=== PATIENT | male | born 1975 | race Caucasian/White ===

== ENCOUNTER 2024-08-28 05:48 | Emergency (ER) | payer BC, SELFPAY ==
--- NOTE | 2024-08-28 | XR_ITS ---
Examination: MRI pelvis with intravenous contrast. MRI pelvis without intravenous contrast. Date and time of exam: August 28, 2024 1129 hrs. Indications: Osteolytic lesion body of the sacrum at the S2 level on CT lumbar spine August 28, 2024 Technique: Multiple axial, sagittal and coronal sections of the pelvis obtained. Transverse images, TR 6020, TE 107. T1 weighted transverse images, TR 582, TE 9.5. T2-weighted sagittal images, TR 4000, TE 105. T2-weighted sagittal images, TR 4000, TE 5. Coronal images, TR 4210, TE 107. Axial and coronal images are obtained post 20 cc intravenous injection, gadolinium. 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
--- NOTE | 2024-08-28 | XR_ITS ---
Examination: MRI lumbar spine, without intravenous contrast. MRI lumbar spine , with intravenous contrast. Exam date and time: August 28, 2024 11:29 AM Technique: Multiple axial, sagittal and coronal images of the lumbar spine have been obtained with the Siemens high-resolution 1.5 Radha MRI scanner. Images obtained included T2 weighted fat suppressed sagittal sections, TR 3500, TE 46, T2 weighted coronal fat suppressed images, TR 3050, TE 84, T2-weighted transverse fat suppressed images, TR 30-60, TE 63, proton density transverse images, TR 4720, TE 46, and T1 weighted coronal images, TR 560, TE 13. Axial, sagittal and coronal images are obtained post intravenous injection 20 cc gadolinium. Findings: Cystic lesion at the S2 level which does not show abnormal enhancement on the postcontrast images, most consistent with Tarlov cyst, measuring 40 x 38 mm Adequate alignment lumbar vertebral bodies No abnormal osseous epidural conus medullaris or cauda equina enhancement Impression: Findings most consistent with benign Tarlov cyst S2 level, recommend 3 month follow-up plain films lumbar spine
[2024-08-28 05:50] VITALS: BMI 29.7
[2024-08-28 05:56] VITALS: BP 134/85; PULSE 61; RESP 19; TEMP 36.4; O2SAT 98
--- NOTE | 2024-08-28 06:22 | XR_ITS ---
Examination: CT lumbar spine, without contrast. 2-D sagittal reconstructions. 2-D coronal reconstructions. 3-D reconstructions. Date and time of exam:August 28, 2024 0655 hrs. Indications: Lower back pain onset one week ago CTDI: vol (mGy):21.8 DLP: (mGycm):646 Technique: Multiple 1.25 mm axial sections of the lumbar spine without intravenous contrast have been obtained. 2-D sagittal and coronal reconstructions have been obtained. 3-D reconstructions have been obtained. Low dose protocols were performed. One or more of the following dose reduction techniques were used; automated exposure control, adjustment of the mA and/or KV according to patient size, use of iterative reconstruction technique. Findings: Mild osteopenia Satisfactory alignment lumbar vertebral bodies No lumbar fracture Mild lumbar spondylosis Mild disc narrowing L5-S1 Lumbar pedicles, laminae, transverse and posterior spinous processes intact Large radiolucent area in the S2 vertebral body, sagittal image 41, axial image 175, differential would include extra medullary intradural tumor, on the axial images this osteolytic defect measures 4.2 x 3.6 cm No significant focal soft tissue disc protrusion Impression: Large osteolytic defect in the body and right sacral wing S2, differential would include extra medullary intradural tumor Recommend MRI lumbar spine and pelvis pre and post contrast follow-up
[2024-08-28] MEDS: KETOROLAC INJ 30 MG/ML VIAL IM (07:04)
[2024-08-28] MEDS: DIAZEPAM 5 MG TABLET 10 MG PO (07:05)
[2024-08-28] MEDS: HYDROcodone/APAP 5/325 TABLET 1 TAB PO (07:05)
[2024-08-28 07:49] VITALS: BP 127/77; PULSE 71; RESP 20; TEMP 36.7; O2SAT 97
--- NOTE | 2024-08-28 08:44 | XR_ITS ---
Examination: CT abdomen with intravenous contrast CT pelvis with intravenous contrast 2-D coronal reconstructions 2-D sagittal reconstructions Date and time of exam:August 28, 2024 0932 hrs. Indications: Lifting injury cyst week with lower back pain, osteolytic lesion in the body and right sacral wing S2 on CT lumbar spine study this morning. CTDI: vol (mGy) 10.2 DLP: (mGycm) 601 Technique: Multiple axial sections of the abdomen and pelvis have been obtained. 64 slice high-resolution scanner used. 3 mm axial sections have been obtained, post intravenous injection 60 cc Isovue-370 2-D sagittal, coronal reconstructions obtained. Low dose protocols were performed. One or more of the following dose reduction techniques were used; automated exposure control, adjustment of the mA and/or KV according to patient size, use of iterative reconstruction technique. Findings: 6 mm low-density posterior right lobe liver lesion image 52 indeterminate No gallstones Spleen not enlarged No pancreatic or adrenal mass Moderate bilateral renal parenchymal scar formation Aorta normal size Normal appendix No bowel obstruction No diverticulitis No prostatomegaly Urinary bladder intact Again noted osteolytic lesion S2, 4 x 3.8 cm Iliac bones hips intact Impression: 6 mm indeterminate right lobe liver lesion, likely benign cysts Moderate bilateral renal parenchymal scar formation Normal appendix No bowel obstruction or diverticulitis Again noted S2 osteolytic lesion 4 x 3.8 cm, recommend MRI lumbar spine follow-up pre and post intravenous contrast
[2024-08-28 09:49] LABS: Basophils % (Auto) 0 % (0-2.5); Eosinophils # (Auto) 0.1 Thou/mm3 (0.0-0.5); Eosinophils % (Auto) 2 % (0-10); Hematocrit 45.6 % (41.0-53.0); Hemoglobin 15.7 g/dL (13.5-16.0); Immature Granulocytes % (Auto) 0 % (0-0); Immature Granulocytes Auto 0.02 Thou/mm3 (0.00-0.00); Lymphocytes # (Auto) 1.8 Thou/mm3 (1.0-4.8); Lymphocytes % (Auto) 35 % (10-50); Mean Corpuscular HGB Conc 34.4 g/dl (31.0-37.0); Mean Corpuscular Hemoglobin 30.5 pg (25.0-35.0); Mean Corpuscular Volume 89 fL (80-100); Monocytes # (Auto) 0.4 Thou/mm3 (0.0-0.8); Monocytes % (Auto) 7 % (0-12); Neutrophils # (Auto) 2.9 Thou/mm3 (1.8-7.7); Neutrophils % (Auto) 55 % (37-80); Nucleated Red Blood Cell % 0 /100 WBC (0); Platelet Count 178 Thou/mm3 (140-440); RDW Standard Deviation 38.3 fL (35.1-43.9); Red Blood Count 5.15 Miln/mm3 (4.50-5.90); White Blood Count 5.3 Thou/mm3 (3.8-10.6)
[2024-08-28 09:54] LABS: Alanine Aminotransferase 28 U/L (10-49); Albumin, Serum 4.8 gm/dL (3.5-5.0); Albumin/Globulin Ratio 2.1 (1.2-2.2); Alkaline Phosphatase 41 U/L (46-116); Anion Gap 7 (7-16); Aspartate Amino Transferase 19 U/L (0-34); BUN/Creatinine Ratio 16 Ratio (12-20); Bilirubin,Total 1.1 mg/dL (0.3-1.2); Blood Urea Nitrogen 18 mg/dL (9-23); Calcium 9.6 mg/dL (8.3-10.6); Calcium (Corrected) 9.6 mg/dL (8.5-10.1); Carbon Dioxide 25.9 mMol/L (20.0-31.0); Chloride 106 mMol/L (98-107); Creatinine (Component) 1.1 mg/dL (0.6-1.3); Estimated Creatinine Clearance 103.1 mL/min (>60); Globulin 2.3 gm/dL (2.3-3.5); Glucose 103 mg/dL (74-106); Osmolality,Calculated 279 (275-295); Potassium 4.2 mMol/L (3.4-5.1); Sodium 139 mMol/L (136-145); Total Protein 7.1 gm/dL (5.7-8.2); eGFR > 60 See Note
[2024-08-28] MEDS: SODIUM CHLORIDE 0.9% 1000 ML 1,000 ML 125 ML IV (09:59)
[2024-08-28 10:49] VITALS: BP 124/83; PULSE 64; RESP 18; TEMP 37; O2SAT 97
[2024-08-28] MEDS: MORPHINE SULF INJ 10 MG/ML VIAL 4 MG IVP (11:02)
[2024-08-28] MEDS: ONDANSETRON INJ 2 MG/ML INJ 2 ML 4 MG IV (11:03)
[2024-08-28 14:00] VITALS: BP 133/76; PULSE 60; RESP 18; TEMP 36.7; O2SAT 97
[2024-08-28 14:42] LABS: Collection Type, Urine Clean Catch; Squamous Epithelial Cell,Urine 0 /hpf (0-5)
[2024-08-28 14:51] LABS: Bilirubin,Urine Negative (Negative); Blood,Urine Negative (Negative); Clarity,Urine Clear (Clear/Hazy); Color,Urine Lt-Yellow (Lt Yel-Yel); Culture Indicated,Urine Not Indicated; Glucose, Urine Negative (Negative); Ketones,Urine Negative (Negative); Leukocyte Esterase,Urine Negative (Negative); Nitrite,Urine Negative (Negative); Protein,Urine Negative (Neg - Trace); RBC,Urine 2 /hpf (0-3); Urobilinogen,Urine Negative mg/dL (0.0-1.0); WBC,Urine < 1 /hpf (0-5)
[2024-08-28 14:56] LABS: Amphetamine/Methamp Scrn,U Negative (Negative); Barbiturate Screen,Urine Negative (Negative); Benzodiazepines Screen,Urine Positive (Negative); Benzoylecgonine Screen, Ur Negative (Negative); Fentanyl Screen,Urine Negative (Negative); Opiate Screen,Urine Positive (Negative); THC Screen,Urine Negative (Negative)
[2024-08-28 15:59] VITALS: BP 133/82; PULSE 57; RESP 18; TEMP 36.7; O2SAT 96
--- NOTE | 2024-08-28 16:11 | EDNOTE_ITS ---
ED Back Injury Pain RME/HPI General Chief Complaint: Back Pain/Injury Stated Complaint: LOWER BACK PAIN Time Seen by Provider: 08/28/24 06:16 Arrival date/time: 08/28/24 05:48 RME / HPI RME / HPI Narrative: Patient presented to the emergency department, accompanied by his . Chief complaint is low back pain x 1 week after moving heavy boxes at house. The pain is 10/10. He has no fever. No chest pain. No abdominal pain. No problems urinating. Is painful when he walks but otherwise no bowel or urine incontinence Past medical history is coronary stenting and angioplasty taking Plavix. No diabetes. Related Data Home Medications ?Medication ?Instructions ?Recorded ?Confirmed amlodipine 5 mg-valsartan 320 mg 1 tab PO QDAY 02/04/20 08/21/23 tablet clopidogrel 75 mg tablet 75 mg PO QDAY 02/13/23 08/21/23 rosuvastatin 20 mg tablet 20 mg PO 1XD 08/21/23 08/21/23 Previous Rx's ?Medication ?Instructions ?Recorded cyclobenzaprine 5 mg tablet 5 mg PO TID PRN muscle spasm #14 08/21/23 tabs ibuprofen 600 mg tablet 600 mg PO Q6H PRN pain #30 tabs 08/21/23 acetaminophen 300 mg-codeine 30 mg 1 tab PO Q6H PRN pain #20 tabs 08/28/24 tablet acetaminophen 300 mg-codeine 30 mg 1 tab PO TID PRN pain #20 tabs 08/28/24 tablet cyclobenzaprine 10 mg tablet 10 mg PO TID PRN muscle spasm #30 08/28/24 tabs hydrocodone 5 mg-acetaminophen 325 1 tab PO Q6H PRN pain #14 tabs 08/28/24 mg tablet Allergies Allergy/AdvReac Type Severity Reaction Status Date / Time No Known Allergies Allergy Verified 02/13/23 15:18 Review of Systems Review of Systems Narrative Review of Systems: REVIEW OF SYSTEM: GEN:? negative except mentioned in HPI HEENT:? negative except mentioned in HPI NECK:? negative except mentioned in HPI PULM:? negative except mentioned in HPI CARD:? negative except mentioned in HPI GI:? negative except mentioned in HPI MUSCULO/SKET: negative except mentioned in HPI SKIN:? negative except mentioned in HPI NEURO:? negative except mentioned in HPI PSYCH:? negative except mentioned in HPI Past Medical History Past Medical History NEUROLOGIC: Negative Neurological Disorders CARDIAC: Positive Cardiac Arrhythmia, Coronary Artery Disease (Stent and 2 balloons placed in 2019.), Hypercholesterolemia, Edema (BLE) and Hypertension; Negative Cardiac Disorders or Congestive Heart Failure RESPIRATORY: Negative Respiratory Disorders, Chronic Obstructive Pulmonary Disease (COPD) or Asthma GASTROINTESTINAL: Negative Gastrointestinal Disorders GENITOURINARY: Negative Genitourinary Disorders or Renal Disease MUSCULOSKELETAL: Positive Musculoskeletal Disorders ENDOCRINE: Negative Endocrine Disorders, Diabetes Mellitus Type 1 or Diabetes Mellitus Type 2 HEMATOLOGIC: Negative Blood Disorders or Sickle Cell Disease OTHER HISTORY: Positive Chicken Pox; Negative Autoimmune Disease or Cancer Family History FAMILY HISTORY: Positive Family Cancer; Negative Family Psychiatric Problems, Family Respiratory Disorders, Family Cardiac Disorders (dad), Family Gastrointestinal Problems, Family Surgery or Family Anesthesia Reaction Surgical History SURGICAL: Negative Endocrine Surgery, Ear Surgery or Abdominal Surgery Social History SMOKING STATUS: Never smoker ED Exam Narrative Physical exam: Aaox4. No acute distress O2 saturation is normal Heent:? perra. Eomi. No icteric. Neck: full rom.? No mass.? No jvd.? No lymphadenopathy Lungs:? clear, full, equal Heart:? s1s2.? Rrr.? No murmur, gallop or rub. Abd: soft, nondistended, nontender, no mass, no rebound or guarding, no flank tender.? No incarcerated? hernia Ext:? full rom.? No deformity.? Normal csm. No deficit. Back examination: Showing some redness on the left flank. May be by the way to the patient laying on it. But is nontender. noticing it. Neuro:?? intact cn2 to 12.? No facial droop.? No slurred speech.? No focal deficit.? Moves all 4ext Skin:? no rash.? No cellulitis.? No lesion.? No laceration Psychiatrical: no suicidal.? No homicidal.? No delusion.? No hallucinating Course Quality Measures none Orders Category Date Time Status CT Screening NOW Care 08/28/24 08:44 Active MRI Screening NOW Care 08/28/24 08:31 Active Saline [Insert IV] NOW Care 08/28/24 08:[address] abdomen pelvis w con Stat Exams 08/28/24 08:[address] lumbar spine wo con Stat Exams 08/28/24 06:22 Completed MR lumbar spine wo/w con Stat Exams 08/28/24 Completed MR pelvis wo/w con Stat Exams 08/28/24 Completed CBC Stat Lab 08/28/24 09:24 Completed CMP [Comprehensive Metabolic Panel] Stat Lab 08/28/24 09:24 Completed Drug Screen,Urine Stat Lab 08/28/24 14:36 Completed UA, C/S IF [Urinalysis, C/S if Indicated] Stat Lab 08/28/24 14:36 Completed CYCLObenzaPRINE [Flexeril] Med 08/28/24 16:09 Discontinued 10 mg PO X1 ONE Diazepam [Valium] Med 08/28/24 06:22 Discontinued 10 mg PO X1 ONE HYDROcodone*/APAP 5/325 [[place] 5/325] Med 08/28/24 06:22 Discontinued 1 tab PO X1 ONE Ibuprofen Tab [Motrin Tab] Med 08/28/24 16:09 Discontinued 600 mg PO X1 ONE Ketorolac Inj [Toradol Inj] Med 08/28/24 06:22 Discontinued 30 mg IM X1 ONE Morphine Inj Med 08/28/24 10:45 Discontinued 4 mg IVP X1 ONE Morphine Inj Med 08/28/24 15:52 Discontinued 4 mg IVP X1 ONE Ondansetron Inj [Zofran Inj] Med 08/28/24 10:47 Discontinued 4 mg IV X1 ONE Ondansetron Inj [Zofran Inj] Med 08/28/24 15:53 Discontinued 4 mg IV X1 ONE Sodium Chloride 0.9% 1000 ml [Ns] 1,000 ml Med 08/28/24 08:31 Active IV 125 mls/hr Vital Signs Vital signs: Vital Signs Temperature 97.6 F 08/28/24 05:56 Pulse Rate 61 08/28/24 05:56 Respiratory Rate 19 08/28/24 05:56 Blood Pressure 134/85 H 08/28/24 05:56 Pulse Oximetry (%) 98 08/28/24 05:56 Oxygen Delivery Method Room Air 08/28/24 05:56 Back Pain / Injury MDM Narrative MDM Narrative:: [facility] [address] [place] [address] [facility] Signed Patient: CHAPIN CADE Med. Record#: [id number] Birthdate: 1975 Age/Sex: 49 / M Location: [facility] Attending Dr: Ordering Physician: Subha (NINO)Jony NP Date of Service: 08/28/24 Procedure(s): CT lumbar spine wo con Accession Number(s): [id number] cc: Subha LEVIN),Jony ONEILL; Tj East MD~ Examination: CT lumbar spine, without contrast. 2-D sagittal reconstructions. 2-D coronal reconstructions. 3-D reconstructions. Date and time of exam:August 28, 2024 0655 hrs. Indications: Lower back pain onset one week ago CTDI: vol (mGy):21.8 DLP: (mGycm):646 Technique: Multiple 1.25 mm axial sections of the lumbar spine without intravenous contrast have been obtained. 2-D sagittal and coronal reconstructions have been obtained. 3-D reconstructions have been obtained. Low dose protocols were performed. One or more of the following dose reduction techniques were used; automated exposure control, adjustment of the mA and/or KV according to patient size, use of iterative reconstruction technique. Findings: Mild osteopenia Satisfactory alignment lumbar vertebral bodies No lumbar fracture Mild lumbar spondylosis Mild disc narrowing L5-S1 Lumbar pedicles, laminae, transverse and posterior spinous processes intact Large radiolucent area in the S2 vertebral body, sagittal image 41, axial image 175, differential would include extra medullary intradural tumor, on the axial images this osteolytic defect measures 4.2 x 3.6 cm No significant focal soft tissue disc protrusion Impression: Large osteolytic defect in the body and right sacral wing S2, differential would include extra medullary intradural tumor Recommend MRI lumbar spine and pelvis pre and post contrast follow-up Dictated By: Tj East MD Signed By: <Electronically signed by Tj East MD in [place]> 08/28/24732 DD/ 9 TD/TT: 08/28/24729 Glassware Maker Demonstrator: RENZO [facility] [address] [place] [address] [facility] Signed Patient: CHAPIN CADE. Record#: [id number] Birthdate: 1975 Age/Sex: 49 / M Location: [facility] Attending Dr: Ordering Physician: Jony Mayer MD Date of Service: 08/28/24 Procedure(s): CT abdomen pelvis w con Accession Number(s): [id number] cc: Tj East MD; Jony Mayer MD; Augustine Murry MD~ Examination: CT abdomen with intravenous contrast CT pelvis with intravenous contrast 2-D coronal reconstructions 2-D sagittal reconstructions Date and time of exam:August 28, 2024 0932 hrs. Indications: Lifting injury cyst week with lower back pain, osteolytic lesion in the body and right sacral wing S2 on CT lumbar spine study this morning. CTDI: vol (mGy) 10.2 DLP: (mGycm) 601 Technique: Multiple axial sections of the abdomen and pelvis have been obtained. 64 slice high-resolution scanner used. 3 mm axial sections have been obtained, post intravenous injection 60 cc Isovue-370 2-D sagittal, coronal reconstructions obtained. Low dose protocols were performed. One or more of the following dose reduction techniques were used; automated exposure control, adjustment of the mA and/or KV according to patient size, use of iterative reconstruction technique. Findings: 6 mm low-density posterior right lobe liver lesion image 52 indeterminate No gallstones Spleen not enlarged No pancreatic or adrenal mass Moderate bilateral renal parenchymal scar formation Aorta normal size Normal appendix No bowel obstruction No diverticulitis No prostatomegaly Urinary bladder intact Again noted osteolytic lesion S2, 4 x 3.8 cm Iliac bones hips intact Impression: 6 mm indeterminate right lobe liver lesion, likely benign cysts Moderate bilateral renal parenchymal scar formation Normal appendix No bowel obstruction or diverticulitis Again noted S2 osteolytic lesion 4 x 3.8 cm, recommend MRI lumbar spine follow-up pre and post intravenous contrast Dictated By: Tj East MD Signed By: <Electronically signed by Tj East MD in [place]> 08/28/24953 DD/ 0 TD/TT: 08/28/24 [address] [place] [address] [facility] Signed Patient: CHAPIN CADE [facility] Record#: [id number] Birthdate: 1975 Age/Sex: 49 / M Location: [facility] Attending Dr: Ordering Physician: Jony Mayer MD Date of Service: 08/28/24 Procedure(s): MR pelvis wo/w con Accession Number(s): [id number] cc: Tj East MD; Jony Mayer MD; Augustine Murry MD~ Examination: MRI pelvis with intravenous contrast. MRI pelvis without intravenous contrast. Date and time of exam: August 28, 2024 1129 hrs. Indications: Osteolytic lesion body of the sacrum at the S2 level on CT lumbar spine August 28, 2024 Technique: Multiple axial, sagittal and coronal sections of the pelvis obtained. Transverse images, TR 6020, TE 107. T1 weighted transverse images, TR 582, TE 9.5. T2-weighted sagittal images, TR 4000, TE 105. T2-weighted sagittal images, TR 4000, TE 5. Coronal images, TR 4210, TE 107. Axial and coronal images are obtained post 20 cc intravenous injection, gadolinium. 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 [address] [place] [address] [facility] Signed Patient: CHAPIN CADE Record#: [id number] Birthdate: 1975 Age/Sex: 49 / M Location: [facility] Attending Dr: Ordering Physician: Jony Mayer MD Date of Service: 08/28/24 Procedure(s): MR lumbar spine wo/w con Accession Number(s): [id number] cc: Tj East MD; Jony Mayer MD; Augustine Murry MD~ Examination: MRI lumbar spine, without intravenous contrast. MRI lumbar spine , with intravenous contrast. Exam date and time: August 28, 2024 11:29 AM Technique: Multiple axial, sagittal and coronal images of the lumbar spine have been obtained with the Siemens high-resolution 1.5 Radha MRI scanner. Images obtained included T2 weighted fat suppressed sagittal sections, TR 3500, TE 46, T2 weighted coronal fat suppressed images, TR 3050, TE 84, T2-weighted transverse fat suppressed images, TR 30-60, TE 63, proton density transverse images, TR 4720, TE 46, and T1 weighted coronal images, TR 560, TE 13. Axial, sagittal and coronal images are obtained post intravenous injection 20 cc gadolinium. Findings: Cystic lesion at the S2 level which does not show abnormal enhancement on the postcontrast images, most consistent with Tarlov cyst, measuring 40 x 38 mm Adequate alignment lumbar vertebral bodies No abnormal osseous epidural conus medullaris or cauda equina enhancement Impression: Findings most consistent with benign Tarlov cyst S2 level, recommend 3 month follow-up plain films lumbar spine Dictated By: Tj East MD Signed By: <Electronically signed by Tj East MD in [place]> 08/28/24 1455 DD/ 1454 TD/TT: 08/28/24 1454 T In the emergency department the patient received medication for pain. As well as Flexeril muscle relaxant. With some relief. Once again the patient exhibited no neurological deficit involving either legs. I gave the patient copy of the MRI report to follow-up with PMD for further evaluation and treatment. I recommend. No heavy lifting for now. The patient is welcome back to the emergency department if condition recurs worsens or if new symptoms develop. Patient data External records reviewed:: [facility] previous records Clinical information provided by:: patient and spouse Social determinants that could affect healthcare access:: none Patient has the following chronic illnesses:: Back pain How is presenting disease/condition affected by chronic disease/condition?: exacerbated by Evaluation data The following diagnostics were reviewed and interpreted by me:: lab results and radiology exam(s) Lab and/or radiology exams considered but not ordered:: None Interpretation Summary: See MDM Medications / Prescriptions Medications or Prescriptions considered but not ordered:: None Medication administrations:: Medication Administration History Sodium Chloride (Ns) 1,000 mls @ 125 mls/hr IV .Q8H ONE Stop: 08/28/24 16:30 Last Admin: 08/28/24 09:59 Dose: 125 mls/hr Documented By: RUTH Discontinued Medications Hydrocodone Bitart/Acetaminophen (Hydrocodone/Apap 5/325 Tablet) 1 tab PO X1 ONE Stop: 08/28/24 06:23 Last Admin: 08/28/24 07:05 Dose: 1 tab Documented By: SUMI Cyclobenzaprine HCl (Cyclobenzaprine 5 Mg Tablet) 10 mg PO X1 ONE Stop: 08/28/24 16:10 Diazepam (Diazepam 5 Mg Tablet) 10 mg PO X1 ONE Stop: 08/28/24 06:23 Last Admin: 08/28/24 07:05 Dose: 10 mg Documented By: SUMI Ibuprofen (Ibuprofen Tab 600 Mg Tablet) 600 mg PO X1 ONE Stop: 08/28/24 16:10 Ketorolac Tromethamine (Ketorolac Inj 30 Mg/Ml Vial) 30 mg IM X1 ONE Stop: 08/28/24 06:23 Last Admin: 08/28/24 07:04 Dose: 30 mg Documented By: SUMI Morphine Sulfate (Morphine Sulf Inj 10 Mg/Ml Vial) 4 mg IVP X1 ONE Stop: 08/28/24 10:46 Last Admin: 08/28/24 11:02 Dose: 4 mg Documented By: RUTH Morphine Sulfate (Morphine Sulf Inj 10 Mg/Ml Vial) 4 mg IVP X1 ONE Stop: 08/28/24 15:53 Ondansetron HCl (Ondansetron Inj 2 Mg/Ml Inj 2 Ml) 4 mg IV X1 ONE; Protocol Stop: 08/28/24 10:48 Last Admin: 08/28/24 11:03 Dose: 4 mg Documented By: RUTH Ondansetron HCl (Ondansetron Inj 2 Mg/Ml Inj 2 Ml) 4 mg IV X1 ONE; Protocol Stop: 08/28/24 15:54 See above Consultations Consultation(s) initiated? (list below): No Diagnosis Most likely diagnosis given after review of the tests above:: Tarlov cyst sacrum Admission Indicated Admission indicated?: not indicated Admission Request Was there a request for admission?: No Disposition Plan Disposition Plan: Discharge Discharge Attestation Discharge Attestation: The patient and all family members were given an opportunity to ask questions and understood the discharge instructions. Discharge instructions specifically effects, indications for sooner follow up or return to the emergency department, and the expected course of current diagnosis. Patient condition: Stable Discharge Plan Plan Patient Disposition: HOME (Self Care) Disposition Comment: Stable to go home Prescriptions/Referrals Prescriptions/Med Rec: New cyclobenzaprine 10 mg tablet 10 mg PO TID PRN (Reason: muscle spasm) Qty: 30 0RF hydrocodone-acetaminophen 5-325 mg tablet 1 tab PO Q6H MDD 4 PRN (Reason: pain) Qty: 14 0RF acetaminophen-codeine 300-30 mg tablet 1 tab PO Q6H PRN (Reason: pain) Qty: 20 0RF No Action amlodipine-valsartan 5-320 mg Tablet 1 tab PO QDAY clopidogrel 75 mg tablet 75 mg PO QDAY Patient Comments: TAKE 1 TABLET BY MOUTH EVERY DAY rosuvastatin 20 mg tablet 20 mg PO 1XD cyclobenzaprine 5 mg tablet 5 mg PO TID PRN (Reason: muscle spasm) Qty: 14 0RF ibuprofen 600 mg tablet 600 mg PO Q6H PRN (Reason: pain) Qty: 30 0RF Referrals: Augustine Murry MD [Primary Care Provider] - In 1 week Problem List Clinical Impression: Low back pain Patient/Caregiver Discharge Instructions Education Materials: ED Back Pain (Acute or Chronic) Additional Instructions: Medication as prescribed. Follow-up with his medical doctor for recheck and further care in 1 week. Please show his medical doctor copy of the MRI reports that I gave you. Return to the emergency department if condition worsens or if new symptoms develop. Avoid heavy lifting. Print Language: [place] Stand Alone Forms: Lis Award Info., Patient Portal Info Letter
== END 2024-08-28 16:51 | disposition home or self-care (01) ==
PROVIDERS: Emergency Provider Emergency Medicine; PCP Internal Medicine
DX: M89.58 Osteolysis, other site (principal); N28.89 Other specified disorders of kidney and ureter
CPT/HCPCS: 36415; 72131; 72158; 72197; 74177; 80053; 80307; 81001; 85025; 96372; 96374; 96375; 99285; A4649; A9579; J1885; J2270; J2405; J7030; Q9967; A9270

== ENCOUNTER → 2024-09-23 | Outpatient (CLI) | payer BC, SELFPAY ==
--- NOTE | 2024-09-23 07:35 | EKG_ITS ---
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
== END | disposition home or self-care (01) ==
LOC: SEKG 07:19
PROVIDERS: PCP Internal Medicine; Referring Provider Orthopaedic Surgery; Visit Provider Orthopaedic Surgery
DX: Z01.818 Encounter for other preprocedural examination (principal); M51.16 Intervertebral disc disorders with radiculopathy, lumbar region
CPT/HCPCS: 93005

== ENCOUNTER → 2025-03-01 | Outpatient (CLI) | payer BC, SELFPAY ==
--- NOTE | 2025-03-01 10:14 | EKG_ITS ---
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
== END | disposition home or self-care (01) ==
LOC: SEKG 07:56
PROVIDERS: PCP Internal Medicine; Referring Provider Orthopaedic Surgery; Visit Provider Orthopaedic Surgery
DX: Z01.818 Encounter for other preprocedural examination (principal)
CPT/HCPCS: 93005